=== PATIENT | female | born 1945 | race Caucasian/White ===

== ENCOUNTER 2016-10-14 08:15 | Outpatient (CLI) | payer OTHER | END 2016-10-14 08:16 | disposition home or self-care (01) | DX: E83.52 Hypercalcemia (principal) ==

== ENCOUNTER 2017-03-16 11:08 | Outpatient (CLI) | payer OTHER ==
--- NOTE | 2017-03-16 13:03 | XRAY Report ---
TWO-VIEW CHEST: 03/16/2017 CLINICAL INDICATION: Cough, wheezing. FINDINGS: Frontal and lateral views of the chest demonstrate a normal cardiac silhouette. The lungs are clear. No effusion or pneumothorax is present. Thoracolumbar junction compression deformities appear stable from previous plain films of 11/02/2015. IMPRESSION: NO EVIDENCE OF ACUTE CARDIOPULMONARY DISEASE. JOB #: [id number] EXT JOB #:[id number]
== END 2017-03-16 11:09 | disposition home or self-care (01) ==
LOC: DI 11:08
PROVIDERS: ATTEND Physician Assistant
DX: R05 Cough (principal); R06.2 Wheezing
CPT/HCPCS: 71020

== ENCOUNTER 2017-08-09 07:33 | Outpatient (CLI) | payer OTHER | END 2017-08-09 07:34 | disposition home or self-care (01) | LOC: RT 07:33 | PROVIDERS: ATTEND Physician Assistant | DX: R06.02 Shortness of breath (principal) | CPT/HCPCS: 93005; 93306 ==

== ENCOUNTER 2018-01-24 21:49 | Outpatient (CLI) | payer OTHER ==
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
== END 2018-01-24 21:50 | disposition home or self-care (01) ==
LOC: DI 21:49
PROVIDERS: ATTEND Physician Assistant
DX: R22.43 Localized swelling, mass and lump, lower limb, bilateral (principal)
CPT/HCPCS: 93970

== ENCOUNTER 2019-12-31 14:08 | Outpatient (CLI) | payer OTHER ==
--- NOTE | 2019-12-31 15:14 | XRAY Report ---
PROCEDURE: Cervical Spine 2 View INDICATIONS: CERVICAL NECK PAIN TECHNIQUE: 3 view(s) of the cervical spine were acquired. COMPARISON: None. FINDINGS: Bones: C1-C6 are well evaluated on the lateral view. Vertebral body heights maintained. Straightening of the usual cervical lordosis likely degenerative in nature. No listhesis. Disc height loss from C2 -C3 through C6-C7 with associated degenerative endplate changes, posterior ossific ridging, facet hyp ertrophy, and uncovertebral hypertrophy. There is almost certain osseous neural foraminal narrowing f rom C3 C4-C6 C7. No evidence of fracture. No suspicious osseous lesion. Soft tissues: No prevertebral soft tissue swelling. IMPRESSION: Extensive degenerative changes. Reviewed by: Jarek Short MD on 12/31/2019 3:13 PM PDT Approved by: Jarek Short MD on 12/31/2019 3:13 PM PDT Station ID: [id number]
--- NOTE | 2019-12-31 15:17 | XRAY Report ---
PROCEDURE: Shoulder 3 View RT INDICATIONS: PAIN IN RIGHT SHOULDER TECHNIQUE: 3 views of the shoulder were acquired. COMPARISON: None. FINDINGS: Bones: Postsurgical changes of prior right rotator cuff repair. High riding humeral head is consiste nt with a history of chronic rotator cuff tear. Moderate osteophytic changes of the glenohumeral join t characterized by joint space narrowing with marginal osteophytosis and subchondral sclerosis of the glenoid. Moderate osteophytic change of the acromioclavicular joint with capsular hypertrophy. No fr actures or dislocations. No suspicious bony lesions. Visualized ribs appear intact. Soft tissues: No suspicious soft tissue calcifications. IMPRESSION: Degenerative glenohumeral and acromioclavicular changes status post right rotator cuff r epair. No acute finding. Reviewed by: Jarek Short MD on 12/31/2019 3:16 PM PDT Approved by: Jarek Short MD on 12/31/2019 3:16 PM PDT Station ID: [id number]
== END 2019-12-31 14:09 | disposition home or self-care (01) ==
LOC: DI 14:08
PROVIDERS: ATTEND Physician Assistant
DX: M50.31 Other cervical disc degeneration, high cervical region (principal); M47.812 Spondylosis without myelopathy or radiculopathy, cervical region; M25.511 Pain in right shoulder; Z98.890 Other specified postprocedural states
CPT/HCPCS: 72040

== ENCOUNTER 2020-03-11 09:44 | Outpatient (CLI) | payer OTHER ==
--- NOTE | 2020-03-11 14:42 | MRI Report ---
PROCEDURE: Shoulder LT W/O INDICATIONS: BURSITIS OF LT SHLDR TECHNIQUE: Noncontrast oblique coronal T2 fast spin echo with fat saturation, oblique sagittal T1 spin echo and T2 fast spin echo with fat saturation, axial T1 spin echo and T2 fast spin echo with fat saturation t hrough the shoulder. COMPARISON: Degraded by motion artifact. FINDINGS: Image quality: Excellent. Rotator cuff: Moderate T2 signal elevation throughout the supraspinatus tendon at the humeral inserti on site, indicating tendinopathy. Multifocal moderate grade articular surface and intrasubstance tear s of the anterior, mid, and posterior supra spinatus tendon at the humeral insertion site are present . No definite full-thickness supraspinatus tear. Low-grade partial-thickness intrasubstance tears of the anterior, mid, and posterior infraspinatus tendon at the humeral insertion site extending to the musculotendinous junction. Teres minor is intact. Subscapularis tendon demonstrates moderate T2 signa l elevation at the humeral insertion site, indicating tendinopathy. Superimposed low-grade partial th ickness tears of the superior, mid, and inferior subscapularis tendon at the humeral insertion site e xtending to the muscular tendinous junction. There is moderate atrophy of the supraspinatus, and mild atrophy of the infraspinatus. Bones and bursae: No bone marrow contusions or fractures. Moderate acromioclavicular joint degenerat ion. The acromion demonstrates conventional anatomy, without an os acromiale. Small amount of subacr omial/subdeltoid bursal fluid is present. Capsule and soft tissues: There is degenerative fraying of the glenoid labrum. There is moderate grad e partial-thickness tearing of the biceps tendon. The rotator interval appears normal, without fibros is. The coracohumeral ligament is normal in thickness. IMPRESSION: 1. Limited examination secondary to motion artifact. 2. Tendinopathy of the rotator cuff with superimposed partial thickness tears as described above. The re is associated supraspinatus and infraspinatus atrophy. No definite full-thickness rotator cuff tea r. 3. Partial-thickness biceps tendon tear. 4. Acromioclavicular joint osteoarthritis. 5. Subacromial bursitis. 6. Diffuse degenerative fraying of the glenoid labrum. Reviewed by: Althea Arvizu MD on 03/11/2020 2:41 PM PDT Approved by: Althea Arvizu MD on 03/11/2020 2:41 PM PDT Station ID: [id number]
== END 2020-03-11 09:45 | disposition home or self-care (01) ==
LOC: DI 09:44
PROVIDERS: ATTEND Registered Nurse
DX: M75.112 Incomplete rotator cuff tear or rupture of left shoulder, not specified as traumatic (principal); S46.212A Strain of muscle, fascia and tendon of other parts of biceps, left arm, initial encounter; M19.012 Primary osteoarthritis, left shoulder; M75.52 Bursitis of left shoulder; M25.812 Other specified joint disorders, left shoulder

== ENCOUNTER 2020-07-28 16:52 | Outpatient (CLI) | payer OTHER ==
--- NOTE | 2020-07-29 12:07 | MRI Report ---
PROCEDURE: Hip RT W/O INDICATIONS: RT HIP PAIN TECHNIQUE: Noncontrast coronal T1 spin echo and STIR through the bony pelvis. Coronal and axial T2 fast spin ec ho with fat saturation, sagittal T1 spin echo, and oblique axial T2 fast spin echo with fat saturatio n through the hip. COMPARISON: None. FINDINGS: Image quality: Excellent. Bones and joints: Significant marrow edema is seen in right femoral head and neck with subtle geograp hic area of heterogeneously hypointense signal involving weightbearing portion of femoral head concer alfredo for developing avascular necrosis of femoral head. No discrete fracture line is identified. No o ther area of marrow signal abnormality. Moderate right hip joint osteoarthritis and mild left hip sissy nt osteoarthritis is seen. The visualized lower lumbar spine appears normally aligned. Tendons: Mild distal gluteus medius tendinosis at its insertion on greater trochanter is seen without muscle atrophy. The iliopsoas tendon appears intact, without adjacent bursal fluid collections. The origin of the hamstring tendon is intact at the ischial tuberosity. Labrum and cartilage: The acetabular labrum appears grossly intact in the absence of intra-articular contrast. Diffuse thinning of articulating cartilages in femoral head is seen. The alpha angle of th e femur is within normal limits at less than 55 degrees. Soft tissues: There is edema involving right iliacus muscle, obturator externus and adductor muscles adjacent to right femoral head and neck suggestive of muscles strain/low-grade partial thickness tear . The proximal sciatic neurovascular bundle appears normal adjacent to the hamstring tendons. No andrew e pelvic fluid. Bladder wall thickness is normal. Genitourinary structures and bowel loops appear n ormal where visualized. IMPRESSION: 1. Significant marrow edema involving right femoral head and neck with subtle geographic area of sign al abnormality involving weightbearing portion of femoral head concerning for developing avascular ne crosis. No definite fracture is seen. No dislocation. No other area of abnormal marrow signal. Small amount of right hip joint effusion. 2. Mild distal gluteus medius tendinosis. Suggestion of sprain/low to moderate grade partial-thicknes s tear involving right iliacus muscle, right obturator externus muscle and right adductor muscles adj acent to right femoral head and neck. 3. No definite focal labral tear is seen. Moderate right hip joint osteoarthritis and thinning of art iculating cartilage. Reviewed by: Piyush Martino MD on 07/29/2020 12:05 PM PST Approved by: Piyush Martino MD on 07/29/2020 12:05 PM PST Station ID: [id number]
== END 2020-07-28 16:53 | disposition home or self-care (01) ==
LOC: DI 16:52
PROVIDERS: ATTEND Nurse Practitioner Family
DX: R93.6 Abnormal findings on diagnostic imaging of limbs (principal); M16.11 Unilateral primary osteoarthritis, right hip

== ENCOUNTER 2021-01-07 09:58 | Outpatient (CLI) | payer OTHER ==
--- NOTE | 2021-01-07 11:07 | Ultrasound Report ---
PROCEDURE: Duplex Ext Veins Right INDICATIONS: Right calf pain TECHNIQUE: Real-time imaging, as well as color and pulse Doppler interrogation, were performed of the lower extr emity deep veins from the inguinal ligament to the popliteal fossa. COMPARISON: None. FINDINGS: The deep veins are normally compressible, and free of intraluminal thrombus. Color and pu lse Doppler demonstrate normal phasic intraluminal flow. There is normal augmentation response to di stal compression maneuver. IMPRESSION: No sonographic evidence of DVT. Reviewed by: Jarek Short MD on 01/07/2021 11:05 AM PDT Approved by: Jarek Short MD on 01/07/2021 11:05 AM PDT Station ID: [id number]
== END 2021-01-07 09:59 | disposition home or self-care (01) ==
LOC: DI 09:58
PROVIDERS: ATTEND Nurse Practitioner Family
DX: M79.661 Pain in right lower leg (principal)

== ENCOUNTER 2021-04-05 07:00 | Outpatient (CLI) | payer OTHER | END 2021-04-05 23:59 | disposition home or self-care (01) | LOC: COV 07:00 | PROVIDERS: ATTEND Family Medicine | DX: U07.1 COVID-19 (principal) ==

== ENCOUNTER 2021-11-01 16:02 | Outpatient (CLI) | payer OTHER ==
[2021-11-01 20:16] LABS: BASOPHILS # (AUTO) 0.1 10^3/uL (0.0-0.1); BASOPHILS % (AUTO) 1.1 %; EOSINOPHILS # (AUTO) 0.4 10^3/uL (0.0-0.7); EOSINOPHILS % (AUTO) 4.5 %; HGB - HEMOGLOBIN 11.4 g/dL (12.0-16.0); LYMPHOCYTES # (AUTO) 2.7 10^3/uL (1.5-3.5); LYMPHOCYTES % (AUTO) 30.3 %; MEAN CORPUSCULAR HEMOGLOBIN 30.1 pg (27.0-31.0); MEAN CORPUSCULAR HGB CONC 32.6 g/dL (32.0-36.0); MEAN CORPUSCULAR VOLUME 92.3 fL (81.0-99.0); MEAN PLATELET VOLUME 9.6 fL (7.9-10.8); MONOCYTES # (AUTO) 0.9 10^3/uL (0.0-1.0); MONOCYTES % (AUTO) 10.5 %; NEUTROPHILS # (AUTO) 4.8 10^3/uL (1.5-6.6); NEUTROPHILS % (AUTO) 53.3 %; PLT - PLATELET COUNT 235 10^3/uL (130-450); RED BLOOD COUNT 3.79 10^6/uL (4.20-5.40); RED CELL DISTRIBUTION WIDTH 13.2 % (12.0-15.0)
[2021-11-01 20:32] LABS: ALBUMIN 3.4 g/dL (3.2-5.5); ALBUMIN/GLOBULIN RATIO 1.1 (1.0-2.2); BILIRUBIN,TOTAL 0.3 mg/dL (0.2-1.0); CALCIUM 8.8 mg/dL (8.5-10.3); POTASSIUM 4.7 mmol/L (3.5-5.0); TOTAL PROTEIN 6.5 g/dL (6.7-8.2)
[2021-11-01 20:37] LABS: THYROID STIMULATING HORMONE 2.01 uIU/mL (0.34-5.60)
[2021-11-01 20:43] LABS: FERRITIN 52.7 ng/mL (11.0-306.8)
== END 2021-11-01 16:03 | disposition home or self-care (01) ==
LOC: LAB.S 16:02
PROVIDERS: ATTEND Registered Nurse
DX: R68.89 Other general symptoms and signs (principal); Z90.89 Acquired absence of other organs
CPT/HCPCS: 36415; 80053; 82306; 82728; 83540; 83735; 84443; 84466; 85025

== ENCOUNTER 2022-11-07 12:39 | Outpatient (CLI) | payer OTHER ==
--- NOTE | 2022-11-08 09:18 | Mammography Report ---
BILATERAL DIGITAL SCREENING MAMMOGRAM 3D/2D: 11/07/2022 CLINICAL: Routine screening. No prior exams were available for comparison. There are scattered areas of fibroglandular density in both breasts (category b / 25%-50% glandular t issue). There are grouped heterogeneous calcifications in the right breast at 10 o'clock posterior depth. No other significant masses, calcifications, or other findings are seen in either breast. IMPRESSION: INCOMPLETE: NEEDS ADDITIONAL IMAGING EVALUATION The grouped heterogeneous calcifications in the right breast are indeterminate. Diagnostic mammogram for additional views to include mediolateral and spot magnification views is recommended. Based on the Tyrer Cuzick model (a risk assessment model) the patients lifetime risk is 1.9% and her 10 year risk is 0.0%. According to the ACR, ACS, and NCCN guidelines, an annual breast MRI exam viral g with mammogram is recommended if the patients lifetime risk is 20% or greater. This exam was interpreted at Station ID: [id number]. NOTE: For mammograms, a report in lay terms will be sent to the patient. Approximately 15% of breast malignancies will not be visualized mammographically. In the management of a palpable breast mass, a negative mammogram must not discourage biopsy of a clinically suspicious lesion. Electronically Signed By: Nino Kuo M.D. aty/:11/07/2022 17:25:27 ACR BI-RADS Category 0: Incomplete 3340F PARENCHYMAL PATTERN: (A) - The breast(s) demonstrate(s) scattered fibroglandular densities. BI-RADS CATEGORY: (0) - 0 RECOMMENDATION: (ADDMAM) - Recommend additional mammographic views. [id number] Immediate follow-up LATERALITY: (R)
== END 2022-11-07 12:40 | disposition home or self-care (01) ==
LOC: DI.S 12:39
PROVIDERS: ATTEND Internal Medicine
DX: Z12.31 Encounter for screening mammogram for malignant neoplasm of breast (principal); R92.8 Other abnormal and inconclusive findings on diagnostic imaging of breast

== ENCOUNTER 2022-12-08 09:37 | Outpatient (CLI) | payer OTHER ==
--- NOTE | 2022-12-09 10:07 | Mammography Report ---
UNILATERAL RIGHT DIGITAL DIAGNOSTIC MAMMOGRAM 3D/2D WITH MAGNIFICATION: 12/08/2022 CLINICAL: Patient returns for magnification views of microcalcifications in the right breast. Comparison is made to exam dated: 11/07/2022 mammogram - [facility]. Comparison als o made to 2013 mammogram. There are scattered areas of fibroglandular density in the right breast (category b / 25%-50% glandul ar tissue). There are grouped calcifications in the right breast at 10 o'clock posterior depth. These are slight ly more prominent than 2013. No other significant masses or calcifications are seen in the breast. Multiple oval masses are stabl e. IMPRESSION: PROBABLY BENIGN The grouped calcifications in the right breast are probably benign. These are slightly more prominent than 2013. A follow-up mammogram in 6 months is recommended. Based on the Tyrer Cuzick model (a risk assessment model) the patients lifetime risk is 1.9% and her 10 year risk is 0.0%. According to the ACR, ACS, and NCCN guidelines, an annual breast MRI exam viral g with mammogram is recommended if the patients lifetime risk is 20% or greater. This exam was interpreted at Station ID: [id number]. NOTE: For mammograms, a report in lay terms will be sent to the patient. Approximately 15% of breast malignancies will not be visualized mammographically. In the management of a palpable breast mass, a negative mammogram must not discourage biopsy of a clinically suspicious lesion. Electronically Signed By: Kurt Iraheta M.D. lc/:12/08/2022 10:17:34 ACR BI-RADS Category 3: Probably benign 3343F PARENCHYMAL PATTERN: (A) - The breast(s) demonstrate(s) scattered fibroglandular densities. BI-RADS CATEGORY: (3) - 3 Mammogram [id number] 6 month follow-up LATERALITY: (B)
== END 2022-12-08 09:38 | disposition home or self-care (01) ==
LOC: DI 09:37
PROVIDERS: ATTEND Internal Medicine
DX: R92.0 Mammographic microcalcification found on diagnostic imaging of breast (principal)

== ENCOUNTER 2023-05-08 12:40 | Outpatient (CLI) | payer OTHER ==
--- NOTE | 2023-05-08 16:38 | XRAY Report ---
PROCEDURE: Foot 3 View RT INDICATIONS: RIGHT FOOT PAIN TECHNIQUE: 3 views of the foot were acquired. COMPARISON: None. FINDINGS: Bones: No fractures or dislocations. No suspicious bony lesions. Soft tissues: No suspicious soft tissue calcifications or masses. IMPRESSION: No acute fracture. No osseous lesion. If symptoms and/or clinical suspicion for patholog y continue, further assessment with repeat plain films, or advanced imaging (e.g., CT, MRI, or bone s can) is recommended for further assessment. Reviewed by: Althea Arvizu MD on 05/08/2023 4:36 PM PST Approved by: Althea Arvizu MD on 05/08/2023 4:36 PM PST Station ID: [id number]
== END 2023-05-08 23:59 | disposition home or self-care (01) ==
LOC: DI.S 12:40
PROVIDERS: ATTEND Emergency Medicine
DX: M79.671 Pain in right foot (principal)

== ENCOUNTER 2024-01-31 08:00 | Outpatient (CLI) | payer OTHER ==
--- NOTE | 2024-01-31 10:45 | XRAY Report ---
PROCEDURE: Hand 3+V RT INDICATIONS: RIGHT THUMB PAIN TECHNIQUE: 3 views of the hand(s) acquired. COMPARISON: None. FINDINGS: Diffuse osseous demineralization. No fracture or dislocation, specifically of the thumb. Scattered osteoarthritis involving the PIP and DIP joints of the 2nd-5th digits, thumb MCP, thumb CMC , and triscaphe joints. 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 IMPRESSION: 1.No acute fracture or dislocation of the right hand thumb. 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 Reviewed by: Juice Harris MD on 01/31/2024 10:44 AM PDT Approved by: Juice Harris MD on 01/31/2024 10:44 AM PDT Station ID: [id number]
== END 2024-01-31 23:59 | disposition home or self-care (01) ==
LOC: DI.S 08:00
PROVIDERS: ATTEND Physician Assistant
DX: M19.041 Primary osteoarthritis, right hand (principal); M19.031 Primary osteoarthritis, right wrist